=== PATIENT | female | born 1980 | race Caucasian/White ===

== ENCOUNTER 2016-03-01 11:19 | Emergency (ER) | payer OTHER ==
[2016-03-01 11:20] VITALS: BP 116/72
[2016-03-01] MEDS ORDERED: CLIN-44 PO (12:36)
[2016-03-01] MEDS ORDERED: HYDR-971 PO (12:36)
--- NOTE | 2016-03-01 12:36 | PHYS DOC ---
Past Medical History Past Medical History: Anxiety, Depression, Other Additional Past Medical Histor: PTSD, ADD Past Surgical History: Additional Past Surgical Histo: I&D of foot, oral surgeries Smoking: Less than 1pk/day Alcohol Use: None Drug Use: None Adult General Chief Complaint Chief Complaint: DENTAL PROBLEM HPI HPI Patient is a 35 year old female who presents with left mandibular dental pain starting yesterday. She reports fever up to 101F with nasal drainage and left ear pain. She denies sore throat or cough. She was prescribed a Z-jessica for her tooth approximately 1 month ago. She states that it got better, but did not completely resolve the infection. She does not currently have a dentist or PCP. Review of Systems Review of Systems Constitutional: Reports fever. Eyes: Denies change in visual acuity, redness, or eye pain. [] HENT: Denies sore throat. Reports dental pain, gingival swelling, nasal drainage , and left ear pain. Respiratory: Denies cough or shortness of breath. [] Integument: Denies rash or skin lesions. [] Neurologic: Denies headache, focal weakness or sensory changes. [] Allergies Allergies Allergies Coded Allergies Type Severity Reaction Last Updated Verified Penicillins Allergy Severe Anaphylaxis 02/03/16 Yes Physical Exam Physical Exam Constitutional: Well developed, well nourished, no acute distress, non-toxic appearance. [] HENT: Normocephalic, atraumatic, bilateral external ears normal, oropharynx moist, no oral exudates, nose normal. Bilateral TMs without erythema or bulging. There is no posterior pharyngeal erythema or tonsillar edema. Tooth # 20 is broken with mild surrounding gingival edema. There is no dental abscess. Eyes: PERRLA, EOMI, conjunctiva normal, no discharge. [] Neck: Normal range of motion, no tenderness, supple, no stridor. [] Skin: Warm, dry, no erythema, no rash. [] Neurologic: Alert and oriented X 3, normal motor function, normal sensory function, no focal deficits noted. [] Psychologic: Affect normal, judgement normal, mood normal. [] Current Patient Data Vital Signs Vital Signs Date Time Temp Pulse Resp B/P Pulse Ox O2 Delivery O2 Flow Rate FiO2 03/01/16 11:20 98.3 84 18 95 Room Air 98.3 EKG EKG [] Radiology/Procedures Radiology/Procedures [] Course & Med Decision Making Course & Med Decision Making Pertinent Labs and Imaging studies reviewed. (See chart for details) [] Dragon Disclaimer Dragon Disclaimer This electronic medical record was generated, in whole or in part, using a voice recognition dictation system. Departure Departure Impression: Primary Impression: Pain, dental Disposition: HOME, SELF-CARE Condition: STABLE Referrals: NO PCP (PCP) Patient Instructions: Dental Caries Additional Instructions: Please complete all of the prescribed antibiotics, even if your tooth is feeling better. Please follow-up with the dentist of your choice as soon as possible. Please take the prescribed pain medication as directed. Do not drive or operate heavy machinery while taking pain medication. Return to emergency department if you have any new or concerning symptoms. Scripts Hydrocodone/Apap 5-325 ([place] 5-325 Tablet)1 Each Tablet1 Tab PO PRN Q6HRS PRN PAIN #12 TAB Prov:HAMIDA PIERCE 03/01/16 Clindamycin Hcl 150 Mg Capsule2 Cap PO QID 10 Days Prov:HAMIDA PIERCE 03/01/16 HAMIDA PIERCE Mar 01, 2016 12:36
== END 2016-03-01 12:40 | disposition home or self-care (01) ==
LOC: ER 11:19
DX: K08.89 Other specified disorders of teeth and supporting structures (principal); H92.02 Otalgia, left ear; R50.9 Fever, unspecified; F32.9 Major depressive disorder, single episode, unspecified; F43.10 Post-traumatic stress disorder, unspecified; F41.9 Anxiety disorder, unspecified; F17.210 Nicotine dependence, cigarettes, uncomplicated; Z88.0 Allergy status to penicillin
CPT/HCPCS: 99283